=== PATIENT | female | born 1940 | race Caucasian/White ===

== ENCOUNTER → 2016-11-29 | Outpatient (CLI) | payer OTHER, MEDICARE | LOC: FIMAGING 08:13 | PROVIDERS: ATTEND Internal Medicine | DX: Z12.31 Encounter for screening mammogram for malignant neoplasm of breast (principal) | CPT/HCPCS: G0202 ==

== ENCOUNTER 2017-09-02 09:38 | Observation (INO) | payer OTHER, MEDICARE ==
--- NOTE | 2017-09-02 09:52 | EDPHY ---
H & P Stated Complaint: Fall Time Seen by Provider: 09/02/17 09:46 HPI/ROS: HPI: This is a 77-year-old female who presents with Chief Complaint: fall/missed step on stairs hit l abd/ribs/head denies loc has head lac Location: Left lower ribs, left elbow, left side of scalp Quality: Injury Duration: 1 hr prior to arrival Signs and Symptoms: + bleeding, no radiation, no numbness, no weakness, no tingling, no incontinence, + decreased range of motion, no swelling, + pain, no fever Timing:acute Severity: moderate Context: The patient was walking down the stairs outside when she did not see the last step which caused her to fall landing on her left side lower ribs, left elbow and hit the left side of her head. Denies LOC/dizziness/nausea/ vomiting/amnesia. Patient was ambulatory at the scene. Denies any loss of consciousness. She is complaining of left lower lateral rib pain that is worse with inspiration and touching the area. No history of lung disease. She also complains of laceration on the left side of her scalp that is"oozing."She has a small abrasion on her left elbow with decreased range of motion secondary to pain. She is right-hand dominant. She is unsure of when her last tetanus booster. She does not take any blood thinners. She is requesting Tylenol for pain. Patient reports that she did not have any dizziness, chest pain, palpitations, fever. Modifying Factors: None Comment: ROS: see HPI Constitutional: No fever, no chills, no weight loss Eyes: No blurred vision Respiratory: No shortness of breath, no cough Cardiovascular: No chest pain Gastrointestinal: No nausea, no vomiting no diarrhea Genitourinary: No dysuria Extremities: No myalgias Neurologic: No weakness, no numbness Skin: No rashes Hematologic: No bruising, no bleeding MEDICAL/SURGICAL/SOCIAL HISTORY: Medical history: Generally healthy. Does not take any regular medications. Surgical history: Denies Social history: Retired. CONSTITUTIONAL: Mild distress elderly female, daughter helping take clothes off in order to put the gown, on awake and alert HEENT: Left occipital laceration and normocephalic, PERRL, EOMI. no globe entrapment, no raccoon eyes. no Wells signs.Tympanic membranes clear. No tympanic membrane rupture. Nares patent; no septal hematoma. Oropharynx clear, no exudate and moist pink mucosa. No malocclusion. no dental trauma. Airway patent. No lymphadenopathy. NECK: supple, left lateral moderate reproducible tenderness, no midline tenderness, flexion 45 degrees, extension 45 degrees, right and left lateral flexion 45 degrees. No meningismus. Cardiovascular: Normal S1/S2, regular rate, regular rhythm, without murmur rub or gallop. PULMONARY/CHEST: Symmetrical and moderate left lower rib reproducible tenderness. no crepitus. Clear to auscultation bilaterally. Resistant to take deep breath due to pain. No accessory muscle usage. ABDOMEN: Soft, nondistended, nontender, no ecchymosis, no rebound, no guarding , no peritoneal signs, no masses or organomegaly. No CVAT. PELVIC: no pain with rocking; bilateral hips flexion 125 degrees, extension 30 degrees, with no pain internal rotation and no pain external rotation. BACK: No midline tenderness, no paraspinous spasm, deep tendon reflexes 2/2, no pain with straight leg raise EXTREMITIES: 2/2 pulses, left ELBOW: Superficial abrasion noted over olecranon , no active bleeding. Full extension to 180, flexion to 150, mild tenderness over medial epicondyle, mild tenderness over lateral epicondyle, no effusion. no deformities, no clubbing, no cyanosis or edema. NEUROLOGICAL: no focal neuro deficits. GCS 15. SKIN: Warm and dry, no erythema. no rash. Good capillary refill. Source: Patient, Family (Daughter) Exam Limitations: No limitations (The the) - Personal History Current Tetanus Diphtheria and Acellular Pertussis (TDAP): Yes - Medical/Surgical History Hx Asthma: No Hx Chronic Respiratory Disease: No Hx Diabetes: No Hx Cardiac Disease: No Hx Renal Disease: No Hx Cirrhosis: No Hx Alcoholism: No Hx HIV/AIDS: No Hx Splenectomy or Spleen Trauma: No Other PMH: DENIES - Social History Smoking Status: Current every day smoker Constitutional: Initial Vital Signs Temperature (C) 36.4 C 09/02/17 09:41 Heart Rate 96 09/02/17 09:41 Respiratory Rate 18 09/02/17 09:41 Blood Pressure 162/109 H 09/02/17 09:41 O2 Sat (%) 94 09/02/17 09:41 O2 Delivery Mode Room Air Allergies/Adverse Reactions: bacitracin [From Neosporin] Allergy (Verified 09/02/17 09:40) BLISTERS bacitracin zinc [From Neosporin] Allergy (Verified 09/02/17 09:40) BLISTERS benzalkonium chloride [From Neosporin] Allergy (Verified 09/02/17 09:40) BLISTERS gramicidin D [From Neosporin] Allergy (Verified 09/02/17 09:40) BLISTERS hydrocortisone [From Neosporin] Allergy (Verified 09/02/17 09:40) BLISTERS neomycin sulfate [From Neosporin] Allergy (Verified 09/02/17 09:40) BLISTERS polymyxin B [From Neosporin] Allergy (Verified 09/02/17 09:40) BLISTERS polymyxin B sulfate [From Neosporin] Allergy (Verified 09/02/17 09:40) BLISTERS MACROLIDES Allergy (Unknown, Uncoded 09/02/15 20:08) PER H&P "CYCLINES" Allergy (Uncoded 09/02/15 20:08) SWELLING/TINGLING "MYCINS" Allergy (Uncoded 09/02/15 20:08) SWELLING/TINGLING Home Medications: Medication Instructions Recorded Calcium Carbonate [Calcium] 500 mg PO DAILY 09/02/17 Cephalexin [Keflex (*)] 500 mg PO DAILY 09/02/17 Cholecalciferol Vit D3 [Vitamin D3 1,000 units PO Q2D 09/02/17 (*)] Estradiol [Estradiol 0.5 MG (RX)] 0.5 mg PO DAILY 09/02/17 Primidone [Mysoline 50mg (RX)] 50 mg PO BID 09/02/17 Medical Decision Making - Diagnostics Imaging Results: Imaging Impressions Cervical Spine CT 09/02/17 09:52 Impression: 1. No acute posttraumatic abnormality identified. If there is persistent pain or neurologic deficit, consider MRI and/or flexion and extension views, if clinically indicated. 2. Multilevel degenerative change with spondylolistheses, spinal canal narrowing , and neural foraminal stenosis, as above. Chest CT 09/02/17 09:52 Impression: 1. Nondisplaced lateral left 7th through 10th rib fractures. 2. Multiple bilateral groundglass opacities with additional findings in the lungs, as above. Follow-up unenhanced chest CT is recommended in 3-6 months per Fleischner Society guidelines. 3. Additional findings as above. Findings discussed with Tierra Enriquez PA-C on September 02, [address] 09/02/17 09:52 Impression: 1. Possible tiny left temporal parenchymal hemorrhage. 2. Diffuse cerebral atrophy with periventricular and subcortical low attenuation consistent with chronic microvascular ischemic gliosis. Elbow X-Ray 09/02/17 09:53 Impression: No acute osseous findings. Procedures: Procedure: Laceration repair. Verbal consent was obtained from the patient. The 3 cm, simple, vertical, deep laceration on the left occipital scalp was anesthetized in the usual fashion using 6 mL of 0.5% bupivacaine with epinephrine. The wound was irrigated, draped and explored to its base with a gloved finger. There were no deep structures involved. No tendon injury was identified. The wound was repaired with #2 lucille. Hemostasis was achieved and patient tolerated procedure well. The procedure was performed by myself. ED Course/Re-evaluation: Based on [place] head CT protocol of age greater than [address] scan ordered. Based on nexus protocol with mild midline tenderness cervical CT scan ordered. CT chest ordered to further evaluate rib fractures and pneumothorax. Left elbow x-ray ordered. Tetanus booster given. Patient given IV morphine 2 mg for pain control. Left elbow abrasion cleaned with soap and water, bacitracin clean sterile dressing applied. Let topical applied to the scalp laceration and irrigated copiously. 1033: Notified by nurse that patient is unable to sit down and still complaining of pain. IV morphine 6 mg ordered. Labs reviewed and show no signs anemia, electrolyte disturbance, acute kidney injury. 1109: notified by nurse that patient is refusing IV contrast. CT chest performed without contrast Scalp laceration closed with 2 lucille. Elbow x-ray my read shows no fracture, no dislocation. Called by Radiology, Dr. Salguero, who reports of left temporal 3 mm parenchymal hemorrhage and 7 through 10 nondisplaced left lateral rib fractures accompanied by ground-glass opacities. No hypoxia, respiratory distress 1235: ED decision to consult for admission. Paged Trauma, Dr. Munoz, who is currently in surgery and requested me to call Dr. Fournier. Spoke with Dr. Fournier per Dr. Munoz's request. Spoke with Neurosurgery, Dr. Sanders, who kindly agrees to consult on this patient. This patient was seen under the supervision of my secondary supervising physician. I evaluated care for this patient independently. Discussed this patient with Dr. Can. Differential Diagnosis: Head injury including but not limited to concussion, skull fracture, intraparenchymal contusion, subarachnoid, subdural and epidural hematoma. - Data Points Laboratory Results: 09/02/17 10:26 POC Hgb 15.6 gm/dL gm/dL (12.6-16.3) POC Hct 46 % % (38-47) POC Sodium 142 mEq/L mEq/L (135-145) POC Potassium 4.0 mEq/L mEq/L (3.3-5.0) POC Chloride 104 mEq/L mEq/L (97-110) POC BUN 20 mg/dL mg/dL (7-23) POC Creatinine 0.9 mg/dL mg/dL (0.6-1.0) POC Glucose 176 mg/dL H mg/dL (70-100) Medications Given: Discontinued Medications Diphtheria/Tetanus/Acell Pertussis (Boostrix) 0.5 ml IM .ONCE ONE Stop: 09/02/17 09:54 Last Admin: 09/02/17 10:19 Dose: 0.5 ml Morphine Sulfate (Morphine) 2 mg IVP EDNOW ONE Stop: 09/02/17 09:55 Last Admin: 09/02/17 10:19 Dose: 2 mg Morphine Sulfate (Morphine) 6 mg IVP EDNOW ONE Stop: 09/02/17 10:34 Last Admin: 09/02/17 10:50 Dose: 6 mg Tetracaine/Epinephrine/Lidocaine (Let Gel Topical) 1 ea TP EDNOW ONE Stop: 09/02/17 09:54 Last Admin: 09/02/17 10:19 Dose: 1 ea Point of Care Test Results: Chemistry 09/02/17 10:26 POC Sodium 142 mEq/L mEq/L (135-145) POC Potassium 4.0 mEq/L mEq/L (3.3-5.0) POC Chloride 104 mEq/L mEq/L (97-110) POC BUN 20 mg/dL mg/dL (7-23) POC Creatinine 0.9 mg/dL mg/dL (0.6-1.0) POC Glucose 176 mg/dL H mg/dL (70-100) ISTAT H&H 09/02/17 10:26 POC Hgb 15.6 gm/dL gm/dL (12.6-16.3) POC Hct 46 % % (38-47) Departure - Departure Disposition: [facility] Inpatient Acute Clinical Impression: Closed traumatic nondisplaced fracture of multiple ribs of left side with delayed healing, Abrasion of left elbow, initial encounter Closed fracture of multiple ribs of left side Qualifiers: Encounter type: initial encounter Qualified Code(s): S22.42XA - Multiple fractures of ribs, left side, initial encounter for closed fracture Cerebral parenchymal hemorrhage Qualifiers: Intracerebral hemorrhage etiology: traumatic Encounter type: initial encounter Laterality: left Loss of consciousness presence/duration: without LOC Qualified Code(s): S06.350A - Traumatic hemorrhage of left cerebrum without loss of consciousness, initial encounter Scalp laceration Qualifiers: Encounter type: initial encounter Qualified Code(s): S01.01XA - Laceration without foreign body of scalp, initial encounter Condition: Fair
[2017-09-02] MEDS ORDERED: TDAP ADULT 0.5 ML INJ (BOOSTRIX) IM ONE (09:53)
[2017-09-02] MEDS ORDERED: LET GEL TOPICAL 1 EA SYR TP ONE (09:53)
[2017-09-02] MEDS ORDERED: IOPAMIDOL (ISOVUE-300) 100 ML BTL ONE (11:02)
[2017-09-02] MEDS ORDERED: HYDROCODONE/APAP 5/325 TAB PO PRN (13:32)
[2017-09-02] MEDS ORDERED: ONDANSETRON 4 MG/2 ML VIAL IVP PRN (13:32)
[2017-09-02] MEDS ORDERED: MAGNESIUM HYDROXIDE 30 ML UDCUP PO PRN (13:36)
[2017-09-02] MEDS ORDERED: BISACODYL 10 MG SUPP PR PRN (13:36)
[2017-09-02] MEDS ORDERED: IBUPROFEN 600 MG TAB PO SCH (14:00)
--- NOTE | 2017-09-02 14:01 | GHP ---
[f rep st] HISTORY AND PHYSICAL DATE OF ADMISSION: 09/02/2017 CHIEF COMPLAINT: Left-sided chest pain, mild left neck pain. PRESENT ILLNESS: A 77-year-old, [place] woman living in [place] who fell on the last step of the sta ircase today, striking the left side of her head and left chest, brought to the emergency room where a workup included CT head, neck, chest, identifying a small intraparenchymal hemorrhage in the left t emporal lobe. No cervical spine fractures. Chest shows some vague ground-glass opacities. No pneum othorax, but rib fractures nondisplaced left 7 through 10. ALLERGIES: Erythromycin and related drugs, tetracycline and related drugs. CURRENT MEDICATIONS: Keflex 500 mg p.o. daily for years. Unclear why this has been prescribed. Horm one replacement therapy, vitamin D, calcium. She denies the use of daily aspirin or other blood thin ners. MEDICAL PROBLEMS: The patient denies asthma, heart trouble, heart attacks, diabetes, epilepsy, rheum atic fever. PREVIOUS SURGERY: Mohs surgery on her leg recently for a skin cancer, right leg, previous hysterecto my with concomitant appendectomy, bilateral inguinal hernia repairs, and a redo laparoscopically. SOCIAL HISTORY: Smoking: Patient smokes a pack a day and then alcohol: Wine daily. REVIEW OF SYSTEMS: As above. PHYSICAL EXAM: HEENT: KARLOS, EOMI, sclerae nonicteric. Pharynx is clear. Several lucille are prese nt behind the left ear without any swelling. Ear canals are unremarkable. Posterior spinal elements are palpated from the neck to the tailbone. No tenderness. Slight sternal tenderness pain along th e left lateral lower ribs consistent with known CT findings. LUNGS: Clear. HEART: No murmur. ABD OMEN: Soft, benign, nontender. PELVIS: Stable to compression. LOWER EXTREMITIES: Slightly erythe matous throughout, but no deformities. No signs of recent trauma. FINAL DIAGNOSES: Left rib fractures 7-10, small intraparenchymal left temporal lobe hemorrhage subar achnoid with normal neurologic exam. No concussion. PLAN: Admit to the intermediate care unit. Frequent neuro checks. Pain management. If her pain is under control, and mental status remains normal, she will likely be discharged tomorrow. /[id number]/MODL
[2017-09-02] MEDS: NICOTINE 14 MG/24 HR PATCH TD SCH (14:22)
[2017-09-02] MEDS ORDERED: HYDROmorphONE/DILAUDID 1 MG/ML INJ IVP PRN (14:39)
[2017-09-02] MEDS ORDERED: NALOXONE HCL 0.4 MG/ML INJ IVP PRN (14:41)
[2017-09-02] MEDS ORDERED: HYDROmorphONE/DILAUDID 6 MG/30 ML PCA IV PRN (14:41)
[2017-09-02] MEDS ORDERED: HYDROmorphONE/DILAUDID 1 MG/ML INJ IVP ONE (14:41)
[2017-09-02] MEDS ORDERED: NS 1,000 ML IV SCH (14:45)
[2017-09-02] MEDS: ACETAMINOPHEN 500 MG TAB PO SCH (15:23)
[2017-09-02] MEDS: CYCLOBENZAPRINE 10 MG TAB PO SCH ×2 (15:24→21:08)
[2017-09-02] MEDS: LIDOCAINE 4%/MENTHOL 1% PATCH TD SCH (16:29)
[2017-09-02] MEDS: GABAPENTIN 100 MG CAP PO SCH ×2 (16:31→21:08)
--- NOTE | 2017-09-02 16:33 | ASMTCMCOM ---
CM Note CM Note Notes: 77yr old female admitted after a fall for 7-10 rib fxs, Intraparenchymal hemorrhage, SAH. Patient smokes and wine daily. Had a normal neuro exam, no concussion. Getting neuro checks. Therapies have not been ordered. June. CM to follow. Date Signed: 09/02/2017 04:32 PM Electronically Signed By:Elaine Ramirez LCSW
--- NOTE | 2017-09-02 16:39 | ASMTLACE ---
JENELLE Acuity / Level of Answers: Yes Care: Did the patient have an inpatient admission? Comorbidities - select Answers: Any tumor (including all that apply lymphoma or leukemia) Other Notes: Fall-rib fx SAH, IPH # of Emergency department Answers: 1-2 visits in the last 6 months Score: 7 Date Signed: 09/02/2017 04:39 PM Electronically Signed By:Elaine Ramirez LCSW
[2017-09-02] MEDS: KETOROLAC 15 MG/1 ML SDV IVP SCH (17:36)
--- NOTE | 2017-09-02 17:52 | GCON ---
[f rep st] CONSULTATION DATE OF CONSULTATION: 09/02/2017 CONSULTING SERVICE: Emergency and Trauma Medicine. REASON FOR CONSULT: Possible tiny right temporal intraparenchymal hemorrhage after a trauma. HISTORY OF PRESENT ILLNESS: The patient is a very pleasant 77-year-old [facility] woman living in [facility] who fell on the last step of the staircase today, striking the left side of her head and left ches t, brought to the emergency room where a workup included CT of the head, neck, and chest, identifying a small intraparenchymal hemorrhage in the left temporal lobe that is read as possible by Radiology. She also has nondisplaced left 7 through 10 rib fractures. She is sitting up in the chair in the [facility], doing her incentive spirometry and provides her own history. PAST MEDICAL HISTORY: Per HPI. PAST SURGICAL HISTORY: Per HPI. Mohs surgery on her leg for a benign skin cancer, hysterectomy, roxana endectomy, bilateral inguinal hernia repairs. MEDICATIONS: Daily Keflex for many years, but she does not remember why this is required. CODE STATUS: Full. ALLERGIES: Erythromycin, tetracycline. SOCIAL HISTORY: A pack-a-day smoker. Daily wine intake. FAMILY HISTORY: This was a trauma so it is noncontributory. REVIEW OF SYSTEMS: Ten points reviewed and negative per her HPI. PHYSICAL EXAM: VITAL SIGNS: Afebrile, blood pressure 164/83, heart rate 70, respiratory rate 20, sa turating 95%. NEUROLOGIC: Awake, alert, and oriented x3. Appears stated age, in no acute distress. Normal fluent speech. Normal cranial nerves. 5/5 strength in all extremities without a pronator d rift. Normal sensory exam. Normal reflex exam. No Harvey's, clonus, or Babinski sign. Gait is de ferred. REVIEW OF IMAGING: I reviewed the patient's noncontrasted head CT and I disagree with the radiologis t's report that the patient has an acute finding. I see nothing of this sort. IMPRESSION AND PLAN: A 77-year-old female with a fall from the last step today with some rib fractur es and by the radiologist's report, a very small possible right temporal contusion that I do not agre e with. She has a reassuring neurologic exam and is sitting in a chair, doing her incentive spiromet ry. There is no need for further neurosurgical evaluation, workup, or intervention, no more scans, a nd antiepileptics are not required. The patient does not need to follow up. I appreciate the consul t, but I am signing off. /[id number]/MODL
[2017-09-02] MEDS ORDERED: PATCH REMOVAL 1 EA PATCH TD SCH (21:00)
[2017-09-02] MEDS: PRIMIDONE 50 MG TAB PO SCH (21:08)
[2017-09-03] MEDS: ACETAMINOPHEN 500 MG TAB PO SCH ×2 (00:06→07:31)
[2017-09-03] MEDS: KETOROLAC 15 MG/1 ML SDV IVP SCH ×3 (00:06→13:38)
[2017-09-03 05:05] LABS: PLATELET COUNT 138 10^3/uL (150-400)
[2017-09-03] MEDS: HYDROmorphONE/DILAUDID 2 MG TAB PO PRN ×2 (07:32→13:58)
[2017-09-03] MEDS: NICOTINE 14 MG/24 HR PATCH TD SCH (08:35)
[2017-09-03] MEDS: LIDOCAINE 4%/MENTHOL 1% PATCH TD SCH (08:35)
[2017-09-03] MEDS: CYCLOBENZAPRINE 10 MG TAB PO SCH (08:37)
[2017-09-03] MEDS: PRIMIDONE 50 MG TAB PO SCH (08:38)
[2017-09-03] MEDS: GABAPENTIN 100 MG CAP PO SCH (08:39)
[2017-09-03] MEDS ORDERED: CALCIUM CARBONATE 500 MG TAB PO SCH (09:00)
[2017-09-03] MEDS ORDERED: ESTRADIOL 0.5 MG TAB PO SCH (09:00)
[2017-09-03] MEDS ORDERED: CEPHALEXIN 500 MG CAP PO SCH (09:00)
--- NOTE | 2017-09-03 11:56 | TRAUMAPNT ---
Trauma Tertiary Progress Note New Findings: no new findings Assessment/Plan: PAD#1 09/03/2017 Assessment: Pain now under control with oral agents, No further injury identified. No PTX Plan: discharge Subjective: My chest hurts but it is tolerable Objective: Vital Signs Temp Pulse Resp BP Pulse Ox 36.5 C 70 20 122/50 H 97 09/03/17 08:28 09/03/17 08:28 09/03/17 08:28 09/03/17 08:28 09/03/17 08:28 Laboratory Results 09/03/17 04:45 09/03/17 04:45 09/02/17 09/03/17 09/04/17 05:59 05:59 05:59 Intake Total 540.0 800.4 Balance 540.0 800.4 Physical Exam - Physical Exam General Appearance: WD/WN, alert, no apparent distress Neck: non-tender, full range of motion, supple Respiratory: lungs clear, normal breath sounds (No E to A changes) Cardiac/Chest: regular rate, rhythm Abdomen: normal bowel sounds, non-tender, soft Pelvic Exam: deferred Rectal: deferred Back: Normal inspection Skin: normal color, warm/dry Neuro/Psych: no motor/sensory deficits, alert, normal mood/affect, oriented x 3 Time Spent w/Patient (minutes): 15
--- NOTE | 2017-09-03 12:40 | ASDISCHSUM ---
Discharge Information Plan Status:Home with No Needs Medically Cleared to Leave:09/03/2017 Discharge Date:09/03/2017 CM D/C Disposition:Home, Routine, Self-Care ADT D/C Disposition:Home, Routine, Self-Care Projected Discharge Date:09/03/2017 01:00 PM Transportation at D/C:Family Discharge Delay Reason: Follow-Up Date:09/03/2017 01:00 PM Discharge Slot: Final Diagnosis:Fall: 10 rib fxs, Intraparenchymal hemorrhage, SAH Placement Information Patient Contact Information Contact Name:ALPHONSE Relationship:Other Address: Home Phone: City: [facility] Phone: [facility] Code: Email: Financial Information Financial Class:Medicare Primary Plan Desc:MEDICARE INPATIENT Primary Plan Number:[id number] Secondary Plan Desc:[employer]/MDR SUPPLEMENT Secondary Plan Number:[id number] Assessment Information BC CM Progress Note CM Note CM Note Notes: 77yr old female admitted after a fall for 7-10 rib fxs, Intraparenchymal hemorrhage, SAH. Patient smokes and wine daily. Had a normal neuro exam, no concussion. Getting neuro checks. Therapies have not been ordered. June. CM to follow. Date Signed: 09/02/2017 04:32 PM Electronically Signed By:Elaine Ramirez LCSW LACE LACE Acuity / Level of Answers: Yes Care: Did the patient have an inpatient admission? Comorbidities - select Answers: Any tumor (including all that apply lymphoma or leukemia) Other Notes: Fall-rib fx SAH, IPH # of Emergency department Answers: 1-2 visits in the last 6 months Score: 7 Date Signed: 09/02/2017 04:39 PM Electronically Signed By:Elaine Ramirez LCSW Case Management Discharge Plan Note Case Management Discharge Discharge Order Complete? Answers: Yes Patient to Obtain Answers: Independently Medications Transportation Arranged Answers: Family/Friends Transport will Pick (Date 09/03/2017 01:00 PM & Time) Family Notified Answers: Yes Notes: Family to transport Discharge Comments Notes: Patient has been discharged home. Moving about her room, pain under control, will go home with her partner. No other needs. Date Signed: 09/03/2017 12:39 PM Electronically Signed By:Elaine Ramirez LCSW Intervention Information
--- NOTE | 2017-09-03 12:51 | GDS ---
[f rep st] DISCHARGE SUMMARY DISCHARGE DIAGNOSIS: Fall down on stairs with diagnoses of scalp laceration, questionable intraparenchymal bleed and fractures of left ribs 7 through 10. CONDITION AT DISCHARGE: Improved. DISPOSITION: Home. Condition is good. DIET RECOMMENDATIONS: There are no restrictions on her diet. There is no restrictions on the texture of her diet. MEDICATIONS: For pain control, Tylenol 1000 mg every 8 hours scheduled gabapentin 100 mg 3 times a day scheduled, Lidocaine patch apply daily over fractured ribs. Dilaudid 2 to 4 mg every 4 hours as needed for pain. She will take Flexeril 10 mg 3 times a day for spasm. She can also take Toradol 10 mg p.o. q.6h. INSTRUCTIONS AT DISCHARGE: She is to use incentive spirometry q.1 hour awake. She is not to smoke or use nicotine substitutes. She is to follow up with Dr. Fournier in 1 week for staple removal. She is to follow up with family doctor regarding the abnormality seen on her CT scan. A followup CT scan is suggested for 3 months from now. HOSPITAL COURSE: The patient was admitted for pain control and re-evaluation. She proved to be stable will be dismissed on post admission day #1. /[id number]/MODL MTDD
[2017-09-03 13:38] VITALS: BP 133/58
[2017-09-04] MEDS ORDERED: CHOLECALCIFEROL VIT D3 1,000 UNITS TAB PO SCH (09:00)
== END 2017-09-03 14:07 | disposition home or self-care (01) ==
LOC: INTOOBSV 12:36 → F2N 13:42
PROVIDERS: ADMIT Surgery; ATTEND Surgery
PROC: 0HQ0XZZ Repair Scalp Skin, External Approach (ICD-10-PCS; principal; 2017-09-02)
DX: S06.350A Traumatic hemorrhage of left cerebrum without loss of consciousness, initial encounter (principal); S01.01XA Laceration without foreign body of scalp, initial encounter; S22.42XA Multiple fractures of ribs, left side, initial encounter for closed fracture; W10.8XXA Fall (on) (from) other stairs and steps, initial encounter; Z72.0 Tobacco use; M43.12 Spondylolisthesis, cervical region
CPT/HCPCS: 12002; 70450; 71045; 71250; 72125; 73080; 90715; 97165; G0378; G8987; G8988; J1170; J1885; J2270; J2405; 82435-PO; 82565-PO; 82947-PO; 84132-PO; 84295-PO; 84520-PO; 85014-PO; 96374; Q9967

== ENCOUNTER → 2017-11-26 | Outpatient (CLI) | payer OTHER, MEDICARE | LOC: FIMAGING 09:47 | PROVIDERS: ATTEND Nurse Practitioner Adult Health | DX: R91.1 Solitary pulmonary nodule (principal) ==

== ENCOUNTER → 2018-07-05 | Outpatient (CLI) | payer OTHER, MEDICARE | LOC: FIMAGING 09:39 | PROVIDERS: ATTEND Internal Medicine | DX: M47.22 Other spondylosis with radiculopathy, cervical region (principal) ==

== ENCOUNTER → 2018-07-09 | Outpatient (CLI) | payer OTHER, MEDICARE | LOC: FIMAGING 14:32 | PROVIDERS: ATTEND Internal Medicine | DX: I65.29 Occlusion and stenosis of unspecified carotid artery (principal) ==

== ENCOUNTER 2018-08-02 13:56 | Emergency (ER) | payer OTHER, MEDICARE | END 2018-08-02 17:02 | disposition home or self-care (01) ==